=== PATIENT | female | born 1935 | race Caucasian/White ===

== ENCOUNTER 2016-05-25 09:16 | Day surgery (SDC) | payer OTHER, MEDICARE ==
[2016-05-24 08:55] VITALS: BMI 22.1
--- NOTE | 2016-05-25 08:37 | HP ---
History & Physical Update - History History: No Change - Physical Physical: No Change - Assessment Assessment: No Change - Plan Plan: No Change
[2016-05-25] MEDS ORDERED: BUPIVACAINE HCL/PF 0.5% (5MG/ML) 10 ML VIAL ONE (10:46)
[2016-05-25] MEDS ORDERED: PROPOFOL 20 ML ONE (12:09)
[2016-05-25] MEDS ORDERED: MIDAZOLAM HCL 2 MG/2 ML SINGLE DOSE VIAL ONE (12:09)
[2016-05-25] MEDS ORDERED: ceFAZolin SODIUM 1 GM VIAL IVPB ONE (13:13)
[2016-05-25] MEDS ORDERED: DESFLURANE GAS 240 ML BOTTLE IH ONE (13:14)
[2016-05-25] MEDS ORDERED: BUPIVACAINE HCL/PF 0.5% (5MG/ML) 10 ML VIAL IJ ONE ×2 (13:48)
[2016-05-25] MEDS ORDERED: ONDANSETRON 4 MG/2 ML VIAL ONE (14:16)
[2016-05-25] MEDS ORDERED: ONDANSETRON 4 MG/2 ML VIAL IVPUSH PRN (14:27)
[2016-05-25] MEDS ORDERED: oxyCODONE HCL 5 MG TABLET PO PRN (14:27)
--- NOTE | 2016-05-25 14:29 | SURG ---
Surgery Crane Rigger Note Crane Rigger: Jaimie Villalobos PA-C Date of Service: 05/25/16 Diagnosis: Incarcerated right inguinal hernia Procedure: Repair of incarcerated right inguinal hernia with plug and mesh I was present for the entirety of the operative procedure. For further detail, please refer to operative report. Visit type - Case Type Case Type: Scheduled Admission - Emergency Emergency Visit: No - New patient This patient is new to me today: Yes Date on this admission: 05/25/16 - Critical Care Critical Care patient: No
--- NOTE | 2016-05-25 14:32 | OP ---
Operative Note - Note: Operative Date: 05/25/16 Pre-Operative Diagnosis: Incarcerated right inguinal hernia. Operation: Repair of incarcerated right inguinal hernia with plug and mesh. Findings: Large defect on posterior wall of right inguinal canal. Large , wide sac. Post-Operative Diagnosis: Same as Pre-op Surgeon: Catherine Mathew Assembler Motor Vehicle: Jaimie Villalobos Anesthesia: General Specimens Removed: Hernial sac. Estimated Blood Loss (mls): 15 Operative Report Dictated: Yes
[2016-05-25] MEDS ORDERED: ACETAMINOPHEN INJECTION 100 ML IVPB ONE (14:34)
[2016-05-25 15:58] VITALS: TEMP 98
[2016-05-25] MEDS ORDERED: oxyCODONE HCL 5 MG TABLET ONE (16:01)
[2016-05-25] MEDS ORDERED: oxyCODONE HCL 5 MG TABLET PO ONE (16:04)
--- NOTE | 2016-05-25 17:00 | OP ---
DATE OF OPERATION: 05/25/2016 PREOPERATIVE DIAGNOSIS: Incarcerated right inguinal hernia. POSTOPERATIVE DIAGNOSIS: Incarcerated right inguinal hernia. OPERATIVE PROCEDURE: Repair of incarcerated right inguinal hernia with plug and mesh. SURGEON: Catherine Mathew MD BOAT CARPENTER MECHANIC: ANUP Whitt ANESTHESIA: General anesthesia. OPERATIVE DESCRIPTION: This 81-year-old woman was brought in for pain in her right groin with significant swelling. The patient was found to have incarcerated right inguinal hernia. Consent was obtained. The risks, benefits, and complications were discussed with the patient. The patient was given general anesthesia. The right groin was painted and draped. A time-out was called. The patient was a gram of Ancef. Incision was made in the right groin along the skin crease, which was deepened into the skin, subcutaneous tissue, Fox fascia, and external oblique aponeurosis. The inguinal canal was then opened. There was a lot of fat and a large sac with it going all the way down out to the external ring. This was carefully from the rest of the structures. The posterior wall of the inguinal canal was found to be friable and wide. The sac was carried all the way to the internal ring and then this was opened. The bowel was returned to the abdominal cavity. The neck of the sac was then suture-ligated with 3-0 Vicryl sutures and was from the posterior surface of the transversus abdominis muscle and fascia and the inferior portion and anterior portion of the abdominal wall and returned to the abdominal cavity. A large plug was inserted through the defect to push the peritoneum cephalad. This was anchored with 2-0 Prolene sutures passed through the internal oblique and transversus abdominis muscle and fascia and brought through the internal ring, caught the outer leaf of the mesh and was reinserted through the internal ring and brought out through the abdominal wall. Two sutures were obtained, one above and lateral to the defect and one above and medial to the defect. The plug was then inserted through the defect and placed and brought out through the anterior abdominal wall. Large mesh was then placed across the defect. This was anchored at the level of the pubic tubercle with 2-0 Prolene sutures. The inferior leaf of the mesh was placed over the shelving ledge of the inguinal ligament and anchored with the [employer] tracking device. The superior leaf of the mesh was incorporated with 2-0 Prolene suture holding the plug and brought through the mesh and the knot was fashioned. A few extra trackers were placed to attach the mesh over the internal oblique muscle. The repair was thus adequately performed. The wound was irrigated. Hemostasis was satisfactory. The external oblique aponeurosis was approximated with continuous 3-0 Vicryl sutures. Fox fascia was approximated with buried interrupted 3-0 Vicryl sutures and the subcutaneous fat was also approximated with buried interrupted 3-0 Vicryl sutures. The skin was approximated with 4-0 Monocryl sutures in a running subcuticular fashion. Dermabond was applied across the skin edges. Estimated blood loss was less than 10 mL. Sponge count and instrument count was correct. The patient was extubated and sent to the recovery room in satisfactory and stable condition. Cirilo REBOLLAR/[id number]
[2016-05-25 17:17] VITALS: BP 138/70; PULSE 75
--- NOTE | 2016-05-29 13:15 | PATH ---
Surgical Pathology Report Patient Name: KENJI OZUNA [facility]. Rec. #: [id number] /Age/Gender: 1935 (Age: 81) / F Account: [id number] Location: [facility] SURGICAL Taken: 05/28/2016 Received: 05/28/2016 Reported: 05/29/2016 Physicians: Beryl Mathew M.D. Specimen(s) Received HERNIA SAC Clinical History Incarcerated right inguinal hernia Final Diagnosis HERNIA SAC, RIGHT INCARCERATED INGUINAL HERNIA REPAIR: BENIGN FIBROMEMBRANOUS AND FIBROADIPOSE TISSUE WITH VASCULAR CONGESTION CONSISTENT WITH HERNIA SAC. Electronically Signed Owen Lu M.D. Gross Description Received in formalin labeled "hernia sac" is a 5.0 x 4.7 x 1.5 cm irregular portion of rodarte schumacher fibromembranous tissue with minimal attached fat. No masses or areas of hemorrhage or necrosis are identified. Servicenow Administrator sections are submitted in one cassette. /05/28/2016 saudi05/28/2016
== END 2016-05-25 17:05 | disposition home or self-care (01) ==
LOC: JASU-SURG 09:16
PROVIDERS: ATTEND Specialist
PROC: 0YU50JZ Supplement Right Inguinal Region with Synthetic Substitute, Open Approach (ICD-10-PCS; principal; 2016-05-25 11:30)
DX: K40.30 Unilateral inguinal hernia, with obstruction, without gangrene, not specified as recurrent (principal)
CPT/HCPCS: 88302-TC; 94760

== ENCOUNTER 2017-07-18 20:56 | Emergency (ER) | payer OTHER, MEDICARE ==
[2017-07-18 21:02] VITALS: TEMP 98.2; BMI 22.6
--- NOTE | 2017-07-18 21:04 | PDOC ---
Rapid Medical Evaluation Chief Complaint: Allergic Reaction Time Seen by Provider: 07/18/17 20:59 Medical Evaluation: Allergies Allergy/AdvReac Type Severity Reaction Status Date / Time aspirin Allergy Rash Verified 05/25/16 10:42 07/18/17 21:00 c/o oral swelling, + drowsy and slight nausea since 6pm. patient reports that she was gardening unsure if touched an allergen. she took benadryl and baby aspirin at 8 pm Patient alert oral swelling. no tongue swelling hives to body patient to ER further management of care.
[2017-07-18] MEDS ORDERED: diphenhydrAMINE HCL 25 MG CAPSULE (FP) PO ONE ×2 (21:57→22:04)
[2017-07-18] MEDS ORDERED: predniSONE 20 MG TABLET (UD) PO ONE (21:57)
[2017-07-18] MEDS ORDERED: predniSONE 20 MG TABLET (UD) ONE (22:04)
--- NOTE | 2017-07-18 22:40 | PDOC ---
Attending Attestation - Resident Resident Name: Alexander Shukla - ED Attending Attestation I have performed the following: I have examined & evaluated the patient, The case was reviewed & discussed with the resident, I agree w/resident's findings & plan, Exceptions are as noted - HPI HPI: 07/18/17 22:35 82-year-old female with history of hypertension presents with angioedema and urticaria. The patient was gardening today, approximately 2 PM to 4 PM. Stated that she had no ALLERGIES her symptoms at that time. At 6 PM, patient started noticing bilateral lip and to edema and diffuse urticaria along her upper extremities, chest and back. Also noted in her lower extremities. Patient reported which was gardening that she was wearing long jeans and short T-shirt. Denies any vascular lesions. No chest pain or shortness of breath. She stated that the symptoms started occur on its own. Patient does not take Ye inhibitors. She had taken a Benadryl prior to arrival in the symptoms are improved. Denies any diarrhea, nausea, vomiting. First-time episode. No new shampoos or soaps or detergents. - Physicial Exam PE: 07/18/17 22:37 GENERAL: Awake, alert, and fully oriented, in no acute distress. HEAD: No signs of trauma EYES: EOMI, sclera anicteric, conjunctiva clear ENT: Auricles normal inspection, hearing grossly normal, nares patent, oropharynx clear without exudates. B/l lip angioedema but clear oropharynx. NECK: Normal ROM, supple, no lymphadenopathy, JVD, or masses LUNGS: Breath sounds equal, clear to auscultation bilaterally. No wheezes, and no crackles HEART: Regular rate and rhythm, normal S1 and S2, no murmurs, rubs or gallops EXTREMITIES: Normal range of motion, no edema. No clubbing or cyanosis. No cords, erythema, or tenderness NEUROLOGICAL: Cranial nerves II through XII grossly intact. Normal speech, normal gait SKIN: Warm, Dry, normal turgor. Intermittent improving urticaria along flexors of biceps b/l, anterior chest and back. - Medical Decision Making 07/18/17 22:38 Vital Signs Temp Pulse Resp BP Pulse Ox 98.2 F 86 18 146/88 98 07/18/17 20:59 07/18/17 20:59 07/18/17 20:59 07/18/17 20:59 07/18/17 20:59 I suspect that this is likely angioedema and allergic reaction. Could this be from pollen or other exposure? This does not appear to be poison geronimo. Will give benadryl and prednisone and observe. If the symptoms resolve, and the patient has been stable for several hours, she can go home with follow up with an top lift trimmer. Pt will need a prescription for benadryl, prednisone and epipen. 07/18/17 23:56 Pt has been observed for 2 and half hours with significant improvement in symptoms. The patient and patient's son strongly wishes to go home and does not want to stay. I had explained to the patient strict return precautions given that we have not done a full 6 hour observation Pt and pt's son both agree and pt's son will watch patient at home. Will d/c patient home.
--- NOTE | 2017-07-18 23:20 | PDOC ---
History of Present Illness - General Chief Complaint: Allergic Reaction Stated Complaint: ALLERGIC REACTION Time Seen by Provider: 07/18/17 20:59 History Source: Patient, Family - History of Present Illness Initial Comments: 07/18/17 23:20 82F with pmh of HTN presents with lip angioedema and new-onset urticaria all over arms, chest and back. . The patient was gardening today at around 2pm, which is an activity she hadn't done in year. Ate an orange around 4 and started noticing increasingly intense symptoms. [place] was wearing gloves. No chest pain or shortness of breath. She stated that the symptoms started occur on its own. Patient does not take Ye inhibitors. She had taken a Benadryl prior to arrival in the symptoms are improved. Denies any diarrhea, nausea, vomiting. First-time episode. No new shampoos or soaps or detergents. No new foods. Past History - Past Medical History Allergies/Adverse Reactions: Allergies Allergy/AdvReac Type Severity Reaction Status Date / Time aspirin Allergy Rash Verified 07/18/17 21:02 Home Medications: Ambulatory Orders Amlodipine Besylate 10 mg PO DAILY 05/24/16 Simvastatin 5 mg PO HS 05/24/16 Diphenhydramine HCl [Benadryl -] 25 mg PO Q8H #21 capsule 07/18/17 Epinephrine [Epipen 2-Jp] 0.3 mg IJ ASDIR #1 kit 07/18/17 predniSONE [Deltasone -] 40 mg PO DAILY #4 tablet 07/18/17 COPD: No HTN: Yes Hypercholesterolemia: Yes Thyroid Disease: Yes (SL ELEVATED-NOT TREATED YET) - Suicide/Smoking/Psychosocial Hx Smoking Status: No Smoking History: Never smoked Number of Cigarettes Smoked Daily: 0 Hx Alcohol Use: No Drug/Substance Use Hx: No Substance Use Type: None Hx Substance Use Treatment: No Review of Systems - Review of Systems Able to Perform ROS?: Yes Is the patient limited Lithuanian proficient: No Constitutional: No: Symptoms Reported HEENTM: Yes: See HPI Respiratory: No: Symptoms reported Cardiac (ROS): No: Symptoms Reported ABD/GI: No: Symptoms Reported : No: Symptoms Reported Musculoskeletal: No: Symptoms Reported Integumentary: Yes: Dryness, Erythema, Pruritus, Rash Neurological: No: Symptoms reported *Physical Exam - Vital Signs Last Vital Signs Temp Pulse Resp BP Pulse Ox 98.2 F 86 18 146/88 98 07/18/17 20:59 07/18/17 20:59 07/18/17 20:59 07/18/17 20:59 07/18/17 20:59 - Physical Exam General Appearance: Yes: Nourished, Appropriately Dressed. No: Apparent Distress HEENT: positive: EOMI, IJEOMA, Other (angioedema of lips) Neck: negative: Tender Respiratory/Chest: positive: Lungs Clear, Normal Breath Sounds. negative: Chest Tender Cardiovascular: positive: Regular Rhythm, Regular Rate, S1, S2 Gastrointestinal/Abdominal: positive: Normal Bowel Sounds, Flat, Soft. negative : Tender Musculoskeletal: positive: Normal Inspection Integumentary: positive: Other (intensely pruritic erythematous patches with scaling over arms, chest and back.) Neurologic: positive: Fully Oriented, Alert, Normal Mood/Affect ED Treatment Course - Medications Given in the ED: ED Medications Discontinued Medications Generic Name Dose Route Start Last Admin Trade Name Freq PRN Reason Stop Dose Admin Diphenhydramine HCl 25 mg 07/18/17 21:57 07/18/17 22:00 Benadryl - PO 07/18/17 21:58 25 mg ONCE ONE Administration Prednisone 40 mg 07/18/17 21:57 07/18/17 22:00 Deltasone - PO 07/18/17 21:58 40 mg ONCE ONE Administration Medical Decision Making - Medical Decision Making 07/18/17 23:38 82 with pruritis scaly erythmatous patches consistent with new-onset urticaria and lip angioedema probably from exposure to irritant while gardening.. Will give Benadryl 25mg (2nd dose) and prednisone. Will observe until resolution of symptoms. 07/18/17 23:59 Will d/c with referral to Dr. David PARR/Admit/Observation/Transfer Diagnosis at time of Disposition: [id number] - Discharge Dispostion Disposition: HOME Condition at time of disposition: Improved Decision to Admit order: No - Prescriptions Prescriptions: Diphenhydramine HCl [Benadryl -] 25 mg PO Q8H #21 capsule Epinephrine [Epipen 2-Jp] 0.3 mg IJ ASDIR #1 kit predniSONE [Deltasone -] 40 mg PO DAILY #4 tablet - Referrals Referrals: Aristeo Hernandez MD [Primary Care Provider] - Alvino Hernandez MD [Staff Physician] - - Patient Instructions Printed Discharge Instructions: DI for Angioedema, DI for Hives Additional Instructions: Follow up with Dr. Hernandez within the next 4 days. supervisor endless track vehicle Epipen at pharmacy and carry at all times. Come back to the ER for any new, worsening or concerning symptom. - Post Discharge Activity
[2017-07-19 00:15] VITALS: BP 138/77; PULSE 84
== END 2017-07-19 00:15 | disposition home or self-care (01) ==
LOC: JER 20:56
DX: T78.3XXA Angioneurotic edema, initial encounter (principal)
CPT/HCPCS: 99282-25

== ENCOUNTER 2020-05-05 13:01 | Inpatient (IN) | payer OTHER, MEDICARE ==
[2020-05-05 15:24] LABS: POTASSIUM 3.9 mmol/L (3.5-5.1)
[2020-05-05 15:27] LABS: ALBUMIN 2.7 g/dl (3.4-5.0); BLOOD UREA NITROGEN 28.7 mg/dL (7-18)
[2020-05-05 15:29] LABS: BILIRUBIN,DIRECT 0.1 mg/dL (0.0-0.2)
[2020-05-05 15:30] LABS: CREATININE 1.2 mg/dL (0.55-1.3)
[2020-05-05 15:31] LABS: BILIRUBIN,TOTAL 0.4 mg/dL (0.2-1); TOT PROT 6.2 g/dl (6.4-8.2)
[2020-05-05] MEDS ORDERED: ACETAMINOPHEN 325 MG TABLET (FP) PO ONE (15:34)
[2020-05-05] MEDS ORDERED: DEXAMETHASONE SOD PHOSPHATE 4 MG/1 ML VIAL IVPUSH ONE (15:37)
[2020-05-05] MEDS ORDERED: DEXAMETHASONE SOD PHOSPHATE 10 MG/1 ML VIAL ONE (15:43)
[2020-05-05 17:15] LABS: INR 0.92 (0.83-1.09); PROTHROMBIN TIME (PATIENT) 11.3 SEC (9.7-13.0)
[2020-05-05] MEDS ORDERED: SIMVASTATIN 5 MG PO SCH (17:45)
[2020-05-05 18:56] VITALS: BMI 21.3
[2020-05-05] MEDS: HEPARIN NA (PORCINE) 5,000 UNITS/ML 1ML VIAL SQ SCH (22:00)
[2020-05-06] MEDS: HEPARIN NA (PORCINE) 5,000 UNITS/ML 1ML VIAL SQ SCH ×4 (06:12→21:07)
[2020-05-06 07:10] LABS: BASO % 0.4 % (0-2.0); HEMATOCRIT 40.4 % (32.4-45.2); HEMOGLOBIN 13.6 GM/dL (10.7-15.3); LYMPH % 9.5 % (8-40); MCH 28.4 pg (25.7-33.7); MCHC 33.7 g/dl (32.0-36.0); MEAN CELL VOLUME 84.5 fl (80-96); MEAN PLT VOLUME 8.4 fl (7.5-11.1); MONO % 6.8 % (3.8-10.2); NEUT % 83.3 % (42.8-82.8); PLATELET COUNT 287 K/MM3 (134-434); RBC 4.78 M/mm3 (3.60-5.2); RDW 13.6 % (11.6-15.6)
[2020-05-06 07:26] LABS: ALBUMIN 2.8 g/dl (3.4-5.0)
[2020-05-06 07:27] LABS: BLOOD UREA NITROGEN 28.6 mg/dL (7-18)
[2020-05-06 07:30] LABS: CREATININE 1.2 mg/dL (0.55-1.3); PHOSPHOROUS 4.1 mg/dL (2.5-4.9)
[2020-05-06 07:31] LABS: BILIRUBIN,TOTAL 0.6 mg/dL (0.2-1)
[2020-05-06] MEDS ORDERED: DEXAMETHASONE 4 MG TABLET (FP) PO SCH (10:00)
[2020-05-06] MEDS: DONEPEZIL HCL 10 MG TABLET (FP) PO SCH (10:11)
[2020-05-06] MEDS: LOSARTAN POTASSIUM 50 MG TABLET PO SCH (10:11)
[2020-05-06] MEDS ORDERED: REMDESIVIR 200 MG in SODIUM CHLORIDE 210 ML IVPB ONE (12:30)
[2020-05-06] MEDS: amLODIPine BESYLATE 10 MG TABLET (FP) PO SCH (15:17)
[2020-05-07] MEDS: HEPARIN NA (PORCINE) 5,000 UNITS/ML 1ML VIAL SQ SCH ×3 (05:27→21:50)
[2020-05-07 08:42] LABS: HEMATOCRIT 40.7 % (32.4-45.2); HEMOGLOBIN 13.9 GM/dL (10.7-15.3); MCH 28.4 pg (25.7-33.7); MCHC 34.2 g/dl (32.0-36.0); MEAN PLT VOLUME 8.4 fl (7.5-11.1); PLATELET COUNT 449 K/MM3 (134-434); RDW 13.8 % (11.6-15.6); WHITE BLOOD COUNT 8.3 K/mm3 (4.0-10.0)
[2020-05-07 09:17] LABS: POTASSIUM 3.4 mmol/L (3.5-5.1)
[2020-05-07 09:34] LABS: BLOOD UREA NITROGEN 35.8 mg/dL (7-18)
[2020-05-07 09:35] LABS: BILIRUBIN,TOTAL 0.7 mg/dL (0.2-1); TOT PROT 7.2 g/dl (6.4-8.2)
[2020-05-07 09:37] LABS: CREATININE 1.1 mg/dL (0.55-1.3)
[2020-05-07 09:42] LABS: CALCIUM 10.5 mg/dL (8.5-10.1)
[2020-05-07] MEDS ORDERED: PT OWN MED DRAWER 7, Y5N ONE (09:59)
[2020-05-07] MEDS: MAGNESIUM OXIDE 400 MG TABLET (FP) PO ONE ×2 (10:10→10:31)
[2020-05-07] MEDS: LOSARTAN POTASSIUM 50 MG TABLET PO SCH ×2 (10:10→10:31)
[2020-05-07] MEDS: DONEPEZIL HCL 10 MG TABLET (FP) PO SCH ×2 (10:10→10:30)
[2020-05-07] MEDS: amLODIPine BESYLATE 10 MG TABLET (FP) PO SCH ×2 (10:10→10:31)
[2020-05-07] MEDS: DEXAMETHASONE SOD PHOSPHATE 4 MG/1 ML VIAL IVPUSH SCH ×2 (10:11→10:31)
[2020-05-07] MEDS: ALBUTEROL SO4 HFA INHALER IH PRN (10:11)
[2020-05-07] MEDS: MELATONIN 5 MG TABLETS PO ONE ×2 (10:11→10:31)
[2020-05-07] MEDS: REMDESIVIR 100 MG in SODIUM CHLORIDE 230 ML IVPB SCH ×2 (12:50→21:55)
[2020-05-07] MEDS: BUDESONIDE/FORMETEROL FUMARATE 80/4.5 mcg INHALER IH SCH ×2 (12:50→21:50)
[2020-05-07] MEDS ORDERED: LORazepam 2 MG/ML SDV VIAL IM ONE (15:15)
[2020-05-08] MEDS: HEPARIN NA (PORCINE) 5,000 UNITS/ML 1ML VIAL SQ SCH ×2 (06:01→13:09)
[2020-05-08] MEDS: BUDESONIDE/FORMETEROL FUMARATE 80/4.5 mcg INHALER IH SCH ×2 (10:09→21:48)
[2020-05-08] MEDS: DEXAMETHASONE SOD PHOSPHATE 4 MG/1 ML VIAL IVPUSH SCH (10:15)
[2020-05-08] MEDS: amLODIPine BESYLATE 10 MG TABLET (FP) PO SCH (10:15)
[2020-05-08] MEDS: DONEPEZIL HCL 10 MG TABLET (FP) PO SCH (10:15)
[2020-05-08] MEDS: LOSARTAN POTASSIUM 50 MG TABLET PO SCH (10:15)
[2020-05-08] MEDS ORDERED: PT OWN MED DRAWER 7, Y5N ONE (13:05)
[2020-05-08] MEDS: REMDESIVIR 100 MG in SODIUM CHLORIDE 230 ML IVPB SCH (13:09)
[2020-05-08] MEDS: POTASSIUM CHLORIDE TABS 20 MEQ TABLET.ER (FP) PO SCH (21:48)
[2020-05-08] MEDS: ENOXAPARIN NA (PORCINE) 40 MG/0.4 ML DISP.SYRIN SQ SCH (21:48)
[2020-05-09 07:16] LABS: EPI CELLS 23 /uL (0-25.1); HYALINE CASTS 8 /uL (0-3.1); URINE APPEARANCE CLEAR; URINE BACTERIA 3 /uL (0-1359); URINE BILIRUBIN NEGATIVE (NEGATIVE); URINE COLOR YELLOW; URINE GLUCOSE (UA) NEGATIVE (NEGATIVE); URINE KETONE TRACE (NEGATIVE); URINE LEUK ESTERASE NEGATIVE (NEGATIVE); URINE NITRITE NEGATIVE (NEGATIVE); URINE PROTEIN 1+ (NEGATIVE); URINE RBC 5 /uL (0-23.9); URINE UROBILINOGEN 0.2 mg/dL (0.2-1.0); URINE WBC 7 /uL (0-25.8)
[2020-05-09 09:06] LABS: EOS % 0.1 % (0-4.5); HEMATOCRIT 44.4 % (32.4-45.2); HEMOGLOBIN 15.1 GM/dL (10.7-15.3); LYMPH % 9.8 % (8-40); MCH 28.6 pg (25.7-33.7); MEAN PLT VOLUME 7.5 fl (7.5-11.1); MONO % 11.3 % (3.8-10.2); NEUT % 78.8 % (42.8-82.8); PLATELET COUNT 465 K/MM3 (134-434); RBC 5.29 M/mm3 (3.60-5.2); RDW 13.8 % (11.6-15.6); WHITE BLOOD COUNT 5.8 K/mm3 (4.0-10.0)
[2020-05-09 09:34] LABS: CALCIUM 10.9 mg/dL (8.5-10.1)
[2020-05-09 09:35] LABS: BLOOD UREA NITROGEN 43.1 mg/dL (7-18); MAGNESIUM 2.5 mg/dL (1.8-2.4)
[2020-05-09 09:37] LABS: CREATININE 1.1 mg/dL (0.55-1.3)
[2020-05-09 09:38] LABS: PHOSPHOROUS 2.6 mg/dL (2.5-4.9)
[2020-05-09 09:39] LABS: BILIRUBIN,TOTAL 0.7 mg/dL (0.2-1); TOT PROT 7.4 g/dl (6.4-8.2)
[2020-05-09] MEDS: amLODIPine BESYLATE 10 MG TABLET (FP) PO SCH (10:33)
[2020-05-09] MEDS: ENOXAPARIN NA (PORCINE) 40 MG/0.4 ML DISP.SYRIN SQ SCH ×2 (10:33→23:36)
[2020-05-09] MEDS: POTASSIUM CHLORIDE TABS 20 MEQ TABLET.ER (FP) PO SCH ×2 (10:33→23:35)
[2020-05-09] MEDS: BUDESONIDE/FORMETEROL FUMARATE 80/4.5 mcg INHALER IH SCH ×2 (10:34→23:36)
[2020-05-09] MEDS: DEXAMETHASONE SOD PHOSPHATE 4 MG/1 ML VIAL IVPUSH SCH (10:35)
[2020-05-09] MEDS: DONEPEZIL HCL 10 MG TABLET (FP) PO SCH (10:35)
[2020-05-09] MEDS: LOSARTAN POTASSIUM 50 MG TABLET PO SCH (10:35)
[2020-05-09] MEDS: REMDESIVIR 100 MG in SODIUM CHLORIDE 230 ML IVPB SCH (11:39)
[2020-05-09] MEDS: ESCITALOPRAM OXALATE 10 MG TABLET PO SCH (18:04)
[2020-05-09] MEDS: ASCORBIC ACID 250 MG TABLET (FP) PO SCH (23:35)
[2020-05-10] MEDS ORDERED: PATIENT'S OWN MEDICATION (NON-FORMULARY) (Pravastatin Sodium [Pravastatin Sodium] 20 MG Ta PO SCH (10:00)
[2020-05-10] MEDS ORDERED: PT OWN MED DRAWER 7, Y5N ONE ×3 (10:06→20:32)
[2020-05-10] MEDS: LOSARTAN POTASSIUM 50 MG TABLET PO SCH (10:07)
[2020-05-10] MEDS: DEXAMETHASONE SOD PHOSPHATE 4 MG/1 ML VIAL IVPUSH SCH (10:07)
[2020-05-10] MEDS: ZINC SULFATE 220 MG CAPSULE (FP) PO SCH (10:07)
[2020-05-10] MEDS: ENOXAPARIN NA (PORCINE) 40 MG/0.4 ML DISP.SYRIN SQ SCH ×2 (10:07→22:06)
[2020-05-10] MEDS: DONEPEZIL HCL 10 MG TABLET (FP) PO SCH (10:07)
[2020-05-10] MEDS: CHOLECALCIFEROL (VIT D3) 1,000 UNIT (25 MCG) TABLET PO SCH (10:07)
[2020-05-10] MEDS: BUDESONIDE/FORMETEROL FUMARATE 80/4.5 mcg INHALER IH SCH ×2 (10:08→22:09)
[2020-05-10] MEDS: ESCITALOPRAM OXALATE 10 MG TABLET PO SCH (10:08)
[2020-05-10] MEDS: amLODIPine BESYLATE 10 MG TABLET (FP) PO SCH (10:08)
[2020-05-10] MEDS: REMDESIVIR 100 MG in SODIUM CHLORIDE 230 ML IVPB SCH (11:57)
[2020-05-10] MEDS: ASCORBIC ACID 250 MG TABLET (FP) PO SCH ×2 (11:57→22:06)
[2020-05-10] MEDS ORDERED: SODIUM CHLORIDE 0.45% 1,000 ML IV SCH (17:00)
[2020-05-11 07:30] LABS: HEMATOCRIT 39.7 % (32.4-45.2); HEMOGLOBIN 13.3 GM/dL (10.7-15.3); MCH 28.4 pg (25.7-33.7); MCHC 33.6 g/dl (32.0-36.0); MEAN CELL VOLUME 84.5 fl (80-96); MEAN PLT VOLUME 7.7 fl (7.5-11.1); PLATELET COUNT 516 K/MM3 (134-434); RDW 13.6 % (11.6-15.6); WHITE BLOOD COUNT 10.4 K/mm3 (4.0-10.0)
[2020-05-11 08:02] LABS: POTASSIUM 3.7 mmol/L (3.5-5.1)
[2020-05-11 08:50] LABS: ALBUMIN 3.1 g/dl (3.4-5.0); BLOOD UREA NITROGEN 48.1 mg/dL (7-18); CALCIUM 10.4 mg/dL (8.5-10.1); MAGNESIUM 2.4 mg/dL (1.8-2.4)
[2020-05-11 08:53] LABS: CREATININE 1.2 mg/dL (0.55-1.3); PHOSPHOROUS 2.4 mg/dL (2.5-4.9)
[2020-05-11 08:55] LABS: BILIRUBIN,TOTAL 0.8 mg/dL (0.2-1); TOT PROT 6.7 g/dl (6.4-8.2)
[2020-05-11] MEDS ORDERED: PT OWN MED DRAWER 7, Y5N ONE ×4 (10:29→21:22)
[2020-05-11] MEDS: ESCITALOPRAM OXALATE 10 MG TABLET PO SCH (10:38)
[2020-05-11] MEDS: LOSARTAN POTASSIUM 50 MG TABLET PO SCH (10:38)
[2020-05-11] MEDS: DONEPEZIL HCL 10 MG TABLET (FP) PO SCH (10:38)
[2020-05-11] MEDS: amLODIPine BESYLATE 10 MG TABLET (FP) PO SCH (10:40)
[2020-05-11] MEDS: AMINO ACIDS/PROTEIN HYDROLYS 30 ML LIQUID.PKT PO SCH ×2 (10:40→10:50)
[2020-05-11] MEDS: CHOLECALCIFEROL (VIT D3) 1,000 UNIT (25 MCG) TABLET PO SCH (10:40)
[2020-05-11] MEDS: ASCORBIC ACID 250 MG TABLET (FP) PO SCH ×3 (10:40→21:52)
[2020-05-11] MEDS: ZINC SULFATE 220 MG CAPSULE (FP) PO SCH (10:40)
[2020-05-11] MEDS: DEXAMETHASONE SOD PHOSPHATE 4 MG/1 ML VIAL IVPUSH SCH (10:41)
[2020-05-11] MEDS: BUDESONIDE/FORMETEROL FUMARATE 80/4.5 mcg INHALER IH SCH ×3 (10:41→21:52)
[2020-05-11] MEDS: ENOXAPARIN NA (PORCINE) 40 MG/0.4 ML DISP.SYRIN SQ SCH ×2 (15:43→21:46)
[2020-05-11] MEDS: SODIUM CHLORIDE 0.45% 1,000 ML IV SCH ×2 (15:47→17:41)
[2020-05-12] MEDS: ALBUTEROL SO4 HFA INHALER IH PRN (09:00)
[2020-05-12] MEDS: AMINO ACIDS/PROTEIN HYDROLYS 30 ML LIQUID.PKT PO SCH (11:55)
[2020-05-12] MEDS: MULTIVITAMINS (DAILY MVI) TABLET (FP) PO SCH (11:55)
[2020-05-12] MEDS: amLODIPine BESYLATE 10 MG TABLET (FP) PO SCH (11:55)
[2020-05-12] MEDS: CHOLECALCIFEROL (VIT D3) 1,000 UNIT (25 MCG) TABLET PO SCH (11:55)
[2020-05-12] MEDS: DONEPEZIL HCL 10 MG TABLET (FP) PO SCH (11:56)
[2020-05-12] MEDS: ZINC SULFATE 220 MG CAPSULE (FP) PO SCH (11:56)
[2020-05-12] MEDS: DEXAMETHASONE 4 MG TABLET (FP) PO SCH (11:56)
[2020-05-12] MEDS: ESCITALOPRAM OXALATE 10 MG TABLET PO SCH (11:56)
[2020-05-12] MEDS: ASCORBIC ACID 250 MG TABLET (FP) PO SCH ×2 (11:57→21:03)
[2020-05-12] MEDS: LOSARTAN POTASSIUM 50 MG TABLET PO SCH (11:57)
[2020-05-12] MEDS: BUDESONIDE/FORMETEROL FUMARATE 80/4.5 mcg INHALER IH SCH ×2 (11:58→21:03)
[2020-05-12] MEDS: ENOXAPARIN NA (PORCINE) 40 MG/0.4 ML DISP.SYRIN SQ SCH ×2 (11:58→21:02)
[2020-05-12] MEDS: SODIUM CHLORIDE 0.45% 1,000 ML IV SCH ×2 (11:59→15:25)
[2020-05-12 12:23] LABS: HEMATOCRIT 41.8 % (32.4-45.2); HEMOGLOBIN 13.8 GM/dL (10.7-15.3); MCH 27.9 pg (25.7-33.7); MCHC 33.1 g/dl (32.0-36.0); MEAN CELL VOLUME 84.3 fl (80-96); MEAN PLT VOLUME 7.8 fl (7.5-11.1); PLATELET COUNT 465 K/MM3 (134-434); RBC 4.96 M/mm3 (3.60-5.2); RDW 13.8 % (11.6-15.6); WHITE BLOOD COUNT 7.1 K/mm3 (4.0-10.0)
[2020-05-12 12:46] LABS: POTASSIUM 3.9 mmol/L (3.5-5.1)
[2020-05-12 12:49] LABS: ALBUMIN 2.9 g/dl (3.4-5.0); BLOOD UREA NITROGEN 41.8 mg/dL (7-18); MAGNESIUM 2.2 mg/dL (1.8-2.4)
[2020-05-12 12:51] LABS: CALCIUM 9.9 mg/dL (8.5-10.1)
[2020-05-12 12:53] LABS: BILIRUBIN,TOTAL 1.1 mg/dL (0.2-1); CREATININE 0.9 mg/dL (0.55-1.3); PHOSPHOROUS 2.4 mg/dL (2.5-4.9)
[2020-05-12 12:54] LABS: TOT PROT 6.2 g/dl (6.4-8.2)
[2020-05-12] MEDS ORDERED: POTASSIUM PHOSPHATE 15 MM in SODIUM CHLORIDE 250 ML IVPB ONE (15:00)
[2020-05-12] MEDS ORDERED: PT OWN MED DRAWER 7, Y5N ONE (19:49)
[2020-05-13] MEDS ORDERED: SODIUM CHLORIDE 0.45% 1,000 ML IV SCH (07:49)
[2020-05-13] MEDS: AMINO ACIDS/PROTEIN HYDROLYS 30 ML LIQUID.PKT PO SCH (11:00)
[2020-05-13] MEDS: ENOXAPARIN NA (PORCINE) 40 MG/0.4 ML DISP.SYRIN SQ SCH ×2 (11:00→23:21)
[2020-05-13] MEDS: DEXAMETHASONE 4 MG TABLET (FP) PO SCH (11:00)
[2020-05-13] MEDS: amLODIPine BESYLATE 10 MG TABLET (FP) PO SCH (11:00)
[2020-05-13] MEDS: ESCITALOPRAM OXALATE 10 MG TABLET PO SCH (11:00)
[2020-05-13] MEDS: LOSARTAN POTASSIUM 50 MG TABLET PO SCH (11:01)
[2020-05-13] MEDS: DONEPEZIL HCL 10 MG TABLET (FP) PO SCH (11:01)
[2020-05-13] MEDS: ZINC SULFATE 220 MG CAPSULE (FP) PO SCH (11:01)
[2020-05-13] MEDS: MULTIVITAMINS (DAILY MVI) TABLET (FP) PO SCH (11:01)
[2020-05-13] MEDS: CHOLECALCIFEROL (VIT D3) 1,000 UNIT (25 MCG) TABLET PO SCH (11:01)
[2020-05-13] MEDS: BUDESONIDE/FORMETEROL FUMARATE 80/4.5 mcg INHALER IH SCH ×2 (11:01→23:21)
[2020-05-13] MEDS: ASCORBIC ACID 250 MG TABLET (FP) PO SCH ×2 (11:02→23:48)
[2020-05-13 12:20] LABS: HEMOGLOBIN 13.9 GM/dL (10.7-15.3); MCH 28.3 pg (25.7-33.7); MCHC 33.9 g/dl (32.0-36.0); MEAN CELL VOLUME 83.3 fl (80-96); MEAN PLT VOLUME 7.6 fl (7.5-11.1); PLATELET COUNT 440 K/MM3 (134-434); RBC 4.91 M/mm3 (3.60-5.2); RDW 13.5 % (11.6-15.6); WHITE BLOOD COUNT 7.4 K/mm3 (4.0-10.0)
[2020-05-13 12:47] LABS: POTASSIUM 3.5 mmol/L (3.5-5.1)
[2020-05-13 12:49] LABS: BLOOD UREA NITROGEN 29.2 mg/dL (7-18); CALCIUM 9.1 mg/dL (8.5-10.1); MAGNESIUM 1.9 mg/dL (1.8-2.4)
[2020-05-13 12:52] LABS: CREATININE 0.8 mg/dL (0.55-1.3)
[2020-05-13 12:53] LABS: PHOSPHOROUS 2.3 mg/dL (2.5-4.9)
[2020-05-13] MEDS ORDERED: SODIUM CHLORIDE 1,000 ML IV SCH (13:00)
[2020-05-13 17:17] LABS: POTASSIUM 3.7 mmol/L (3.5-5.1)
[2020-05-13 17:19] LABS: CALCIUM 9.3 mg/dL (8.5-10.1)
[2020-05-13 17:20] LABS: BLOOD UREA NITROGEN 29.9 mg/dL (7-18)
[2020-05-13 17:24] LABS: CREATININE 0.8 mg/dL (0.55-1.3)
[2020-05-14] MEDS: AMINO ACIDS/PROTEIN HYDROLYS 30 ML LIQUID.PKT PO SCH (09:17)
[2020-05-14] MEDS ORDERED: PT OWN MED DRAWER 7, Y5N ONE (10:01)
[2020-05-14] MEDS: DEXAMETHASONE 4 MG TABLET (FP) PO SCH (10:04)
[2020-05-14] MEDS: ZINC SULFATE 220 MG CAPSULE (FP) PO SCH (10:04)
[2020-05-14] MEDS: DONEPEZIL HCL 10 MG TABLET (FP) PO SCH (10:04)
[2020-05-14] MEDS: ENOXAPARIN NA (PORCINE) 40 MG/0.4 ML DISP.SYRIN SQ SCH (10:04)
[2020-05-14] MEDS: CHOLECALCIFEROL (VIT D3) 1,000 UNIT (25 MCG) TABLET PO SCH (10:05)
[2020-05-14] MEDS: ESCITALOPRAM OXALATE 10 MG TABLET PO SCH (10:05)
[2020-05-14] MEDS: MULTIVITAMINS (DAILY MVI) TABLET (FP) PO SCH (10:05)
[2020-05-14] MEDS: amLODIPine BESYLATE 10 MG TABLET (FP) PO SCH (10:05)
[2020-05-14] MEDS: ASCORBIC ACID 250 MG TABLET (FP) PO SCH (10:06)
[2020-05-14] MEDS: LOSARTAN POTASSIUM 50 MG TABLET PO SCH (10:06)
[2020-05-14] MEDS: BUDESONIDE/FORMETEROL FUMARATE 80/4.5 mcg INHALER IH SCH (10:06)
[2020-05-14 13:12] LABS: CALCIUM 10.3 mg/dL (8.5-10.1); POTASSIUM 3.6 mmol/L (3.5-5.1)
[2020-05-14 13:13] LABS: BLOOD UREA NITROGEN 38.5 mg/dL (7-18)
[2020-05-14 13:16] LABS: CREATININE 0.8 mg/dL (0.55-1.3)
[2020-05-14 16:08] VITALS: BP 112/73; PULSE 89; TEMP 97.8
== END 2020-05-14 20:30 | disposition home health service (06) | DRG 177 ==
LOC: JER 13:01 → JERBED 16:16 → J7W 18:09 → J8W 05-06 22:50
PROVIDERS: ADMIT Student in an Organized Health Care Education/Training Program; ATTEND Internal Medicine
PROC: XW033E5 Introduction of Remdesivir Anti-infective into Peripheral Vein, Percutaneous Approach, New Technology Group 5 (ICD-10-PCS; principal; 2020-05-06)
PROC: XW13325 Transfusion of Convalescent Plasma (Nonautologous) into Peripheral Vein, Percutaneous Approach, New Technology Group 5 (ICD-10-PCS; 2020-05-09)
DX: U07.1 COVID-19 (principal); J12.82 Pneumonia due to coronavirus disease 2019; G93.41 Metabolic encephalopathy; J96.01 Acute respiratory failure with hypoxia; F05 Delirium due to known physiological condition; F03.91 Unspecified dementia, unspecified severity, with behavioral disturbance; I10 Essential (primary) hypertension; E78.5 Hyperlipidemia, unspecified; R50.9 Fever, unspecified; Z20.822 Contact with and (suspected) exposure to COVID-19; E86.0 Dehydration
CPT/HCPCS: 36415; 36430; 71045-TC-FY; 80048; 80053; 81003; 82248; 82550; 82728; 83605; 83615; 83735; 84100; 84484; 85025; 85027; 85379; 85610; 85730; 86140; 86769; 86850; 86900; 86901; 87040; 87086; 87804; 93005; 93010; 97116-GP; 97161-GP; 99285-25; C9399; C9803; J1644; P9017; U0003; U0005

== ENCOUNTER 2021-06-30 08:54 | Inpatient (IN) | payer OTHER, MEDICARE ==
[2021-06-30 10:33] LABS: BASO % 0.7 % (0-2.0); HEMATOCRIT 38.2 % (32.4-45.2); HEMOGLOBIN 13.1 GM/dL (10.7-15.3); LYMPH % 17.8 % (8-40); MCH 28.5 pg (25.7-33.7); MCHC 34.3 g/dl (32.0-36.0); MEAN PLT VOLUME 7.8 fl (7.5-11.1); MONO % 5.9 % (3.8-10.2); NEUT % 74.6 % (42.8-82.8); PLATELET COUNT 287 10^3/uL (134-434); RDW 13.3 % (11.6-15.6); WHITE BLOOD COUNT 5.8 K/mm3 (4.0-10.0)
[2021-06-30 10:35] LABS: EPI CELLS 6 /uL (0-25.1); HYALINE CASTS 0 /uL (0-3.1); URINE APPEARANCE CLEAR; URINE BACTERIA 4 /uL (0-1359); URINE BILIRUBIN NEGATIVE (NEGATIVE); URINE COLOR YELLOW; URINE GLUCOSE (UA) NEGATIVE (NEGATIVE); URINE KETONE NEGATIVE (NEGATIVE); URINE LEUK ESTERASE NEGATIVE (NEGATIVE); URINE NITRITE NEGATIVE (NEGATIVE); URINE PROTEIN NEGATIVE (NEGATIVE); URINE RBC 56 /uL (0-23.9); URINE UROBILINOGEN 0.2 mg/dL (0.2-1.0); URINE WBC 5 /uL (0-25.8)
[2021-06-30 10:40] LABS: INR 0.97 (0.83-1.09); PROTHROMBIN TIME (PATIENT) 11.1 SEC (9.7-13.0)
[2021-06-30 10:43] LABS: ACTIVATED PTT 31.4 SECONDS (25.2-36.5)
[2021-06-30 10:57] LABS: BLOOD UREA NITROGEN 35.1 mg/dL (7-18)
[2021-06-30 10:58] LABS: ALBUMIN 3.7 g/dl (3.4-5.0); CALCIUM 9.6 mg/dL (8.5-10.1)
[2021-06-30 11:01] LABS: CREATININE 1.4 mg/dL (0.55-1.3)
[2021-06-30 11:02] LABS: BILIRUBIN,TOTAL 0.9 mg/dL (0.2-1)
[2021-06-30 11:03] LABS: TOT PROT 6.8 g/dl (6.4-8.2)
[2021-06-30] MEDS ORDERED: CLOPIDOGREL BISULFATE 75 MG TABLET (FP) ONE (17:53)
[2021-06-30] MEDS: CLOPIDOGREL BISULFATE 75 MG TABLET (FP) PO SCH (17:55)
[2021-06-30 20:29] VITALS: BMI 24.2
[2021-06-30] MEDS ORDERED: PNEUMOC 20-VAL CONJ-DIP CRM/PF 0.5 ML SYRINGE IM ONE (20:29)
[2021-06-30] MEDS ORDERED: LORazepam 2 MG/ML SDV VIAL IVPUSH ONE (20:41)
[2021-06-30] MEDS: ATORVASTATIN CA 40 MG TABLET (FP) PO SCH (21:04)
[2021-06-30] MEDS ORDERED: ATORVASTATIN CA 10 MG TABLET (FP) PO SCH (22:00)
[2021-07-01] MEDS: CLOPIDOGREL BISULFATE 75 MG TABLET (FP) PO SCH (09:27)
[2021-07-01] MEDS: DONEPEZIL HCL 10 MG TABLET (FP) PO SCH (09:27)
[2021-07-01] MEDS: ATORVASTATIN CA 40 MG TABLET (FP) PO SCH (23:35)
[2021-07-02 06:54] LABS: BASO % 0.6 % (0-2.0); EOS % 1.5 % (0-4.5); HEMATOCRIT 43.1 % (32.4-45.2); HEMOGLOBIN 14.3 GM/dL (10.7-15.3); LYMPH % 19.1 % (8-40); MCH 27.5 pg (25.7-33.7); MCHC 33.2 g/dl (32.0-36.0); MEAN CELL VOLUME 82.8 fl (80-96); MONO % 6.7 % (3.8-10.2); NEUT % 72.1 % (42.8-82.8); PLATELET COUNT 288 10^3/uL (134-434); RDW 13.3 % (11.6-15.6); WHITE BLOOD COUNT 6.6 K/mm3 (4.0-10.0)
[2021-07-02 07:19] LABS: ALBUMIN 3.7 g/dl (3.4-5.0); BLOOD UREA NITROGEN 37.5 mg/dL (7-18); MAGNESIUM 2.2 mg/dL (1.8-2.4)
[2021-07-02 07:22] LABS: BILIRUBIN,TOTAL 0.7 mg/dL (0.2-1); CREATININE 1.4 mg/dL (0.55-1.3); PHOSPHOROUS 3.1 mg/dL (2.5-4.9)
[2021-07-02] MEDS: DONEPEZIL HCL 10 MG TABLET (FP) PO SCH (09:11)
[2021-07-02] MEDS: CLOPIDOGREL BISULFATE 75 MG TABLET (FP) PO SCH (09:11)
[2021-07-02] MEDS ORDERED: ENOXAPARIN NA (PORCINE) 40 MG/0.4 ML DISP.SYRIN SQ SCH (10:00)
[2021-07-02] MEDS: ENOXAPARIN NA (PORCINE) 40 MG/0.4 ML DISP.SYRIN SQ SCH ×2 (10:15→10:21)
[2021-07-02] MEDS: ENOXAPARIN NA (PORCINE) 30 MG/0.3 ML DISP.SYRIN SQ SCH (10:40)
[2021-07-02] MEDS ORDERED: LORazepam 2 MG/ML SDV VIAL IVPUSH ONE (21:26)
[2021-07-02] MEDS: ATORVASTATIN CA 40 MG TABLET (FP) PO SCH (21:37)
[2021-07-03] MEDS ORDERED: PATIENT'S OWN MEDICATION (NON-FORMULARY) (Olmesartan Medoxomil [Olmesartan Medoxomil] 20 M PO SCH (06:09)
[2021-07-03] MEDS: LOSARTAN POTASSIUM 50 MG TABLET PO SCH (06:54)
[2021-07-03 07:20] LABS: BASO % 1.5 % (0-2.0); EOS % 2.8 % (0-4.5); HEMOGLOBIN 13.9 GM/dL (10.7-15.3); MCHC 33.9 g/dl (32.0-36.0); MEAN CELL VOLUME 82.6 fl (80-96); MONO % 8.6 % (3.8-10.2); NEUT % 66.1 % (42.8-82.8); PLATELET COUNT 274 10^3/uL (134-434); RBC 4.96 M/mm3 (3.60-5.2); RDW 13.1 % (11.6-15.6); WHITE BLOOD COUNT 5.7 K/mm3 (4.0-10.0)
[2021-07-03 07:26] LABS: ALBUMIN 3.6 g/dl (3.4-5.0); BLOOD UREA NITROGEN 32.6 mg/dL (7-18); CALCIUM 9.9 mg/dL (8.5-10.1); MAGNESIUM 2.1 mg/dL (1.8-2.4)
[2021-07-03 07:31] LABS: BILIRUBIN,TOTAL 0.9 mg/dL (0.2-1); TOT PROT 6.8 g/dl (6.4-8.2)
[2021-07-03 08:03] LABS: CREATININE 1.2 mg/dL (0.55-1.3)
[2021-07-03] MEDS: ENOXAPARIN NA (PORCINE) 30 MG/0.3 ML DISP.SYRIN SQ SCH (10:42)
[2021-07-03] MEDS: DONEPEZIL HCL 10 MG TABLET (FP) PO SCH (10:43)
[2021-07-03] MEDS: CLOPIDOGREL BISULFATE 75 MG TABLET (FP) PO SCH (10:43)
[2021-07-03] MEDS ORDERED: POTASSIUM CHLORIDE TABS 20 MEQ TABLET.ER (FP) PO ONE (16:52)
[2021-07-03] MEDS: ATORVASTATIN CA 40 MG TABLET (FP) PO SCH (21:30)
[2021-07-04 08:08] LABS: CALCIUM 10.5 mg/dL (8.5-10.1)
[2021-07-04 08:09] LABS: BLOOD UREA NITROGEN 32.9 mg/dL (7-18); MAGNESIUM 2.3 mg/dL (1.8-2.4)
[2021-07-04 08:12] LABS: CREATININE 1.1 mg/dL (0.55-1.3)
[2021-07-04] MEDS: CLOPIDOGREL BISULFATE 75 MG TABLET (FP) PO SCH (10:02)
[2021-07-04] MEDS: LOSARTAN POTASSIUM 50 MG TABLET PO SCH (10:02)
[2021-07-04] MEDS: ENOXAPARIN NA (PORCINE) 30 MG/0.3 ML DISP.SYRIN SQ SCH (10:02)
[2021-07-04] MEDS: DONEPEZIL HCL 10 MG TABLET (FP) PO SCH (10:03)
[2021-07-04] MEDS ORDERED: PNEUMOC 20-VAL CONJ-DIP CRM/PF 0.5 ML SYRINGE IM ONE (12:15)
[2021-07-04 17:04] VITALS: BP 136/93; PULSE 85; TEMP 98.3
== END 2021-07-04 12:30 | disposition home or self-care (01) | DRG 65 ==
LOC: JER 08:54 → UNDOADMOB 10:11 → INTOOBSV 10:11 → JERBED 10:11 → J2W 20:06 → OBSVTOIN 07-02 07:30
PROVIDERS: ADMIT Internal Medicine
DX: I63.81 Other cerebral infarction due to occlusion or stenosis of small artery (principal); Q21.1 Atrial septal defect; I10 Essential (primary) hypertension; F03.90 Unspecified dementia, unspecified severity, without behavioral disturbance, psychotic disturbance, mood disturbance, and anxiety; E78.5 Hyperlipidemia, unspecified; R00.1 Bradycardia, unspecified; I44.1 Atrioventricular block, second degree; I49.3 Ventricular premature depolarization; R47.81 Slurred speech
CPT/HCPCS: 0241U-QW; 36415; 70450-TC; 70551-TC; 80048; 80053; 80061; 81003; 82962; 83036; 83735; 84100; 84443; 84484; 85025; 85610; 85730; 86850; 86900; 86901; 90677; 93005; 93010; 93306-TC; 93880-TC; 97116-GP; 97162-GP; 99285-25; G0378

== ENCOUNTER 2022-11-18 19:35 | Inpatient (IN) | payer OTHER, MEDICARE ==
[2022-11-18] MEDS ORDERED: HALOPERIDOL LACTATE 5 MG/ML IM ONE ×2 (20:30→20:38)
[2022-11-18] MEDS ORDERED: LORazepam 2 MG/ML SDV VIAL IM ONE (20:30)
[2022-11-18 21:12] LABS: BASO % 0.7 % (0-2.0); EOS % 0.9 % (0-4.5); HEMATOCRIT 36.1 % (32.4-45.2); HEMOGLOBIN 12.2 GM/dL (10.7-15.3); LYMPH % 7.2 % (8-40); MCH 27.5 pg (25.7-33.7); MCHC 33.7 g/dl (32.0-36.0); MEAN CELL VOLUME 81.5 fl (80-96); MEAN PLT VOLUME 7.6 fl (7.5-11.1); MONO % 5.7 % (3.8-10.2); NEUT % 85.5 % (42.8-82.8); PLATELET COUNT 348 10^3/uL (134-434); RBC 4.43 M/mm3 (3.60-5.2); RDW 14.1 % (11.6-15.6); WHITE BLOOD COUNT 14.8 K/mm3 (4.0-10.0)
[2022-11-18 21:47] LABS: POTASSIUM 5.7 mmol/L (3.5-5.1)
[2022-11-18 21:49] LABS: CALCIUM 9.8 mg/dL (8.5-10.1)
[2022-11-18 21:50] LABS: ALBUMIN 3.7 g/dl (3.4-5.0); BLOOD UREA NITROGEN 30.9 mg/dL (7-18)
[2022-11-18 21:53] LABS: CREATININE 2.2 mg/dL (0.55-1.3)
[2022-11-18 21:54] LABS: BILIRUBIN,TOTAL 0.7 mg/dL (0.2-1)
[2022-11-18 21:55] LABS: TOT PROT 7.1 g/dl (6.4-8.2)
[2022-11-19 01:47] LABS: URINE APPEARANCE Clear; URINE BILIRUBIN Negative (NEGATIVE); URINE COLOR Yellow; URINE GLUCOSE (UA) Negative (NEGATIVE); URINE KETONE Negative (NEGATIVE); URINE LEUK ESTERASE 3+ (NEGATIVE); URINE NITRITE Negative (NEGATIVE); URINE PROTEIN 1+ (NEGATIVE); URINE UROBILINOGEN 0.2 mg/dL (0.2-1.0)
[2022-11-19 02:00] LABS: EPI CELLS 4.3 /uL (0-25.1); URINE BACTERIA 23.9 /uL (0-1359); URINE RBC 62.2 /uL (0-23.9); URINE WBC 1489.9 /uL (0-25.8)
[2022-11-19] MEDS ORDERED: CEFTRIAXONE 1 GM in DEXTROSE 5%-WATER - 100 ML IVPB ONE (02:01)
[2022-11-19] MEDS ORDERED: CEFTRIAXONE 1 GM/50 ML BAG ONE ×2 (02:53→10:17)
[2022-11-19] MEDS: SODIUM CHLORIDE 1,000 ML IV SCH (04:09)
[2022-11-19] MEDS ORDERED: HEPARIN NA (PORCINE) 5,000 UNITS/ML 1ML VIAL ONE ×2 (05:23→14:09)
[2022-11-19] MEDS: HEPARIN NA (PORCINE) 5,000 UNITS/ML 1ML VIAL SQ SCH ×3 (05:50→22:14)
[2022-11-19 06:43] LABS: BASO % 0.8 % (0-2.0); EOS % 0.3 % (0-4.5); HEMATOCRIT 37.3 % (32.4-45.2); HEMOGLOBIN 12.5 GM/dL (10.7-15.3); LYMPH % 10.4 % (8-40); MCH 27.7 pg (25.7-33.7); MCHC 33.5 g/dl (32.0-36.0); MEAN CELL VOLUME 82.8 fl (80-96); MEAN PLT VOLUME 7.7 fl (7.5-11.1); MONO % 5.5 % (3.8-10.2); PLATELET COUNT 354 10^3/uL (134-434); RDW 13.7 % (11.6-15.6); WHITE BLOOD COUNT 10.2 K/mm3 (4.0-10.0)
[2022-11-19 06:58] LABS: POTASSIUM 4.8 mmol/L (3.5-5.1)
[2022-11-19 07:00] LABS: BLOOD UREA NITROGEN 25.6 mg/dL (7-18); CALCIUM 9.4 mg/dL (8.5-10.1)
[2022-11-19 07:01] LABS: ALBUMIN 3.6 g/dl (3.4-5.0)
[2022-11-19 07:03] LABS: CREATININE 1.7 mg/dL (0.55-1.3); PHOSPHOROUS 3.1 mg/dL (2.5-4.9)
[2022-11-19 07:05] LABS: BILIRUBIN,TOTAL 0.8 mg/dL (0.2-1); TOT PROT 7.1 g/dl (6.4-8.2)
[2022-11-19 07:06] LABS: CHOLESTEROL 167 mg/dL (50-200); HDL CHOLESTEROL 75 mg/dL (40-60)
[2022-11-19 07:07] LABS: LDL CHOLESTEROL (ONLY SJRH) 80 mg/dL (5-100)
[2022-11-19] MEDS ORDERED: amLODIPine BESYLATE 5 MG TABLET (FP) ONE (10:16)
[2022-11-19] MEDS: CEFTRIAXONE 1 GM in DEXTROSE 5%-WATER - 50 ML IVPB SCH (10:20)
[2022-11-19] MEDS: amLODIPine BESYLATE 5 MG TABLET (FP) PO SCH (10:20)
[2022-11-19 18:08] VITALS: BMI 19.5
[2022-11-19] MEDS: DONEPEZIL HCL 10 MG TABLET (FP) PO SCH (22:15)
[2022-11-19] MEDS: ATORVASTATIN CA 40 MG TABLET (FP) PO SCH (22:15)
[2022-11-20] MEDS: SODIUM CHLORIDE 1,000 ML IV SCH (04:00)
[2022-11-20] MEDS: HEPARIN NA (PORCINE) 5,000 UNITS/ML 1ML VIAL SQ SCH ×3 (06:45→21:18)
[2022-11-20] MEDS: CEFTRIAXONE 1 GM in DEXTROSE 5%-WATER - 50 ML IVPB SCH (09:55)
[2022-11-20] MEDS: amLODIPine BESYLATE 5 MG TABLET (FP) PO SCH (09:56)
[2022-11-20] MEDS ORDERED: SODIUM CHLORIDE 1,000 ML IV SCH (18:15)
[2022-11-20] MEDS: ATORVASTATIN CA 40 MG TABLET (FP) PO SCH (21:18)
[2022-11-20] MEDS: DONEPEZIL HCL 10 MG TABLET (FP) PO SCH (21:18)
[2022-11-21] MEDS: HEPARIN NA (PORCINE) 5,000 UNITS/ML 1ML VIAL SQ SCH ×3 (05:24→21:35)
[2022-11-21 07:17] LABS: HEMATOCRIT 36.6 % (32.4-45.2); HEMOGLOBIN 12.1 GM/dL (10.7-15.3); MCH 27.3 pg (25.7-33.7); MEAN CELL VOLUME 82.6 fl (80-96); MEAN PLT VOLUME 8.1 fl (7.5-11.1); PLATELET COUNT 287 10^3/uL (134-434); RBC 4.43 M/mm3 (3.60-5.2); RDW 13.6 % (11.6-15.6); WHITE BLOOD COUNT 7.2 K/mm3 (4.0-10.0)
[2022-11-21 07:30] LABS: POTASSIUM 3.8 mmol/L (3.5-5.1)
[2022-11-21 07:33] LABS: CALCIUM 8.9 mg/dL (8.5-10.1)
[2022-11-21 07:34] LABS: ALBUMIN 3.1 g/dl (3.4-5.0); MAGNESIUM 1.8 mg/dL (1.8-2.4)
[2022-11-21 07:35] LABS: PHOSPHOROUS 3.4 mg/dL (2.5-4.9)
[2022-11-21 07:37] LABS: CREATININE 1.3 mg/dL (0.55-1.3)
[2022-11-21 07:38] LABS: BILIRUBIN,TOTAL 0.7 mg/dL (0.2-1); TOT PROT 6.5 g/dl (6.4-8.2)
[2022-11-21] MEDS: amLODIPine BESYLATE 5 MG TABLET (FP) PO SCH (09:14)
[2022-11-21] MEDS: CEFTRIAXONE 1 GM in DEXTROSE 5%-WATER - 50 ML IVPB SCH (09:14)
[2022-11-21] MEDS: DONEPEZIL HCL 10 MG TABLET (FP) PO SCH (21:35)
[2022-11-21] MEDS: ATORVASTATIN CA 40 MG TABLET (FP) PO SCH (21:35)
[2022-11-22] MEDS: HEPARIN NA (PORCINE) 5,000 UNITS/ML 1ML VIAL SQ SCH ×3 (06:25→21:46)
[2022-11-22] MEDS: amLODIPine BESYLATE 5 MG TABLET (FP) PO SCH (10:04)
[2022-11-22 10:37] LABS: HEMATOCRIT 37.4 % (32.4-45.2); HEMOGLOBIN 12.3 GM/dL (10.7-15.3); MCHC 32.9 g/dl (32.0-36.0); MEAN CELL VOLUME 82.2 fl (80-96); MEAN PLT VOLUME 8.3 fl (7.5-11.1); PLATELET COUNT 298 10^3/uL (134-434); RBC 4.55 M/mm3 (3.60-5.2); RDW 13.7 % (11.6-15.6); WHITE BLOOD COUNT 7.5 K/mm3 (4.0-10.0)
[2022-11-22] MEDS: CEFTRIAXONE 1 GM in DEXTROSE 5%-WATER - 50 ML IVPB SCH (10:50)
[2022-11-22] MEDS ORDERED: amLODIPine BESYLATE 5 MG TABLET (FP) PO SCH (10:59)
[2022-11-22] MEDS ORDERED: amLODIPine BESYLATE 2.5 MG TABLET (FP) PO ONE (11:00)
[2022-11-22 11:10] LABS: CALCIUM 9.3 mg/dL (8.5-10.1)
[2022-11-22 11:11] LABS: BILIRUBIN,TOTAL 0.6 mg/dL (0.2-1); TOT PROT 6.5 g/dl (6.4-8.2)
[2022-11-22 11:13] LABS: BLOOD UREA NITROGEN 28.6 mg/dL (7-18); CREATININE 1.2 mg/dL (0.55-1.3)
[2022-11-22 11:22] LABS: POTASSIUM 3.8 mmol/L (3.5-5.1)
[2022-11-22] MEDS: ATORVASTATIN CA 40 MG TABLET (FP) PO SCH (21:46)
[2022-11-22] MEDS: DONEPEZIL HCL 10 MG TABLET (FP) PO SCH (21:46)
[2022-11-23] MEDS: HEPARIN NA (PORCINE) 5,000 UNITS/ML 1ML VIAL SQ SCH (05:41)
[2022-11-23] MEDS ORDERED: CEFTRIAXONE 1 GM in DEXTROSE 5%-WATER - 50 ML IVPB SCH ×2 (07:30→10:00)
[2022-11-23 08:36] VITALS: BP 148/75; PULSE 82; RESP 20; TEMP 98.1
[2022-11-23 09:20] LABS: HEMATOCRIT 35.2 % (32.4-45.2); HEMOGLOBIN 11.8 GM/dL (10.7-15.3); MCH 27.5 pg (25.7-33.7); MCHC 33.5 g/dl (32.0-36.0); MEAN CELL VOLUME 82.1 fl (80-96); MEAN PLT VOLUME 7.8 fl (7.5-11.1); PLATELET COUNT 301 10^3/uL (134-434); RBC 4.29 M/mm3 (3.60-5.2); RDW 13.8 % (11.6-15.6); WHITE BLOOD COUNT 5.6 K/mm3 (4.0-10.0)
[2022-11-23 09:31] LABS: POTASSIUM 3.9 mmol/L (3.5-5.1)
[2022-11-23 09:35] LABS: ALBUMIN 2.9 g/dl (3.4-5.0); CALCIUM 9.4 mg/dL (8.5-10.1); MAGNESIUM 2.1 mg/dL (1.8-2.4)
[2022-11-23 09:39] LABS: CREATININE 1.3 mg/dL (0.55-1.3); PHOSPHOROUS 2.9 mg/dL (2.5-4.9); TOT PROT 6.4 g/dl (6.4-8.2)
[2022-11-23 09:41] LABS: BILIRUBIN,TOTAL 0.5 mg/dL (0.2-1)
[2022-11-23] MEDS ORDERED: HEPARIN NA (PORCINE) 5,000 UNITS/ML 1ML VIAL SQ SCH (14:00)
[2022-11-23] MEDS ORDERED: ATORVASTATIN CA 40 MG TABLET (FP) PO SCH (22:00)
[2022-11-23] MEDS ORDERED: DONEPEZIL HCL 10 MG TABLET (FP) PO SCH (22:00)
== END 2022-11-23 13:42 | disposition home or self-care (01) | DRG 690 ==
LOC: JER 19:35 → JERBED 11-19 00:54 → J4W 11-19 16:54 → J6S 11-21 12:12
PROVIDERS: ADMIT Internal Medicine; ATTEND Internal Medicine
DX: N39.0 Urinary tract infection, site not specified (principal); N17.9 Acute kidney failure, unspecified; K40.30 Unilateral inguinal hernia, with obstruction, without gangrene, not specified as recurrent; F02.811 Dementia in other diseases classified elsewhere, unspecified severity, with agitation; I44.0 Atrioventricular block, first degree; I44.7 Left bundle-branch block, unspecified; R55 Syncope and collapse; Z86.16 Personal history of COVID-19; Z95.0 Presence of cardiac pacemaker; G30.9 Alzheimer's disease, unspecified; E87.5 Hyperkalemia; E86.1 Hypovolemia; I35.0 Nonrheumatic aortic (valve) stenosis; I12.9 Hypertensive chronic kidney disease with stage 1 through stage 4 chronic kidney disease, or unspecified chronic kidney disease; N18.9 Chronic kidney disease, unspecified
CPT/HCPCS: 36415; 70450-TC; 71045-TC-FY; 72125-TC; 72170-TC-FY; 74230-TC-FY; 76775-TC; 80053; 80061; 81003; 82550; 82553; 83036; 83735; 84100; 84436; 84443; 84484; 85025; 85027; 87040; 87086; 92611-GN; 93005; 93010; 93306-TC; 93880-TC; 97116-GP; 97161-GP; 99285-25; J1644

== ENCOUNTER 2023-03-17 17:50 | Inpatient (IN) | payer OTHER, MEDICARE ==
[2023-03-17] MEDS ORDERED: HALOPERIDOL LACTATE 5 MG/ML ONE (19:30)
[2023-03-17] MEDS: HALOPERIDOL LACTATE 5 MG/ML IM ONE (19:38)
[2023-03-17 19:51] LABS: EPI CELLS >36 /uL (0-25.1); HYALINE CASTS 8 /uL (0-3.1); URINE APPEARANCE CLOUDY; URINE BACTERIA 28 /uL (0-1359); URINE BILIRUBIN NEGATIVE (NEGATIVE); URINE COLOR YELLOW; URINE GLUCOSE (UA) NEGATIVE (NEGATIVE); URINE KETONE NEGATIVE (NEGATIVE); URINE LEUK ESTERASE NEGATIVE (NEGATIVE); URINE NITRITE NEGATIVE (NEGATIVE); URINE PROTEIN 1+ (NEGATIVE); URINE WBC 49 /uL (0-25.8)
[2023-03-17 20:12] LABS: URINE RBC 27.8 /uL (0-23.9)
[2023-03-17 20:13] LABS: URINE CRYSTALS FEW /hpf
[2023-03-17 20:18] LABS: BASO % 0.5 % (0-2.0); EOS % 0.3 % (0-4.5); HEMATOCRIT 36.8 % (32.4-45.2); HEMOGLOBIN 12.3 GM/dL (10.7-15.3); MCH 27.5 pg (25.7-33.7); MCHC 33.5 g/dl (32.0-36.0); MEAN CELL VOLUME 81.9 fl (80-96); MEAN PLT VOLUME 7.5 fl (7.5-11.1); MONO % 4.6 % (3.8-10.2); NEUT % 88.6 % (42.8-82.8); PLATELET COUNT 356 10^3/uL (134-434); RDW 14.3 % (11.6-15.6)
[2023-03-17 20:29] LABS: INR 1.05 (0.83-1.09); PROTHROMBIN TIME (PATIENT) 12.2 SEC (9.7-13.0)
[2023-03-17 20:32] LABS: ACTIVATED PTT 29.2 SECONDS (25.2-36.5)
[2023-03-17 20:34] LABS: BLOOD UREA NITROGEN 29.8 mg/dL (7-18); CALCIUM 9.7 mg/dL (8.5-10.1)
[2023-03-17 20:35] LABS: ALBUMIN 3.5 g/dl (3.4-5.0); MAGNESIUM 1.9 mg/dL (1.8-2.4)
[2023-03-17 20:37] LABS: CREATININE 1.5 mg/dL (0.55-1.3)
[2023-03-17 20:39] LABS: BILIRUBIN,TOTAL 0.9 mg/dL (0.2-1); TOT PROT 6.8 g/dl (6.4-8.2)
[2023-03-17] MEDS: SODIUM CHLORIDE 1,000 ML IV SCH (21:52)
[2023-03-17] MEDS: LACTATED RINGERS SOLUTION 1000 ML INFUS.BAG IV ONE (21:52)
[2023-03-18 08:01] LABS: POTASSIUM 3.6 mmol/L (3.5-5.1)
[2023-03-18] MEDS ORDERED: amLODIPine BESYLATE 5 MG TABLET (FP) ONE (08:08)
[2023-03-18 08:18] LABS: CALCIUM 9.4 mg/dL (8.5-10.1)
[2023-03-18 08:19] LABS: BLOOD UREA NITROGEN 27.6 mg/dL (7-18)
[2023-03-18 08:22] LABS: CREATININE 1.1 mg/dL (0.55-1.3); PHOSPHOROUS 3.1 mg/dL (2.5-4.9)
[2023-03-18] MEDS: amLODIPine BESYLATE 5 MG TABLET (FP) PO SCH (10:31)
[2023-03-18] MEDS: ATORVASTATIN CA 40 MG TABLET (FP) PO SCH (22:25)
[2023-03-18] MEDS: DONEPEZIL HCL 10 MG TABLET (FP) PO SCH (22:25)
[2023-03-18] MEDS: FLU VACCINE (FLULAVAL) PF 60 MCG/0.5 ML SYRINGE 2023-2024 IM ONE (22:36)
[2023-03-18] MEDS: LORazepam 2 MG/ML SDV VIAL IM ONE (22:36)
[2023-03-19 07:29] LABS: BASO % 0.6 % (0-2.0); EOS % 0.4 % (0-4.5); HEMATOCRIT 41.1 % (32.4-45.2); HEMOGLOBIN 13.2 GM/dL (10.7-15.3); LYMPH % 9.9 % (8-40); MCH 26.1 pg (25.7-33.7); MCHC 32.2 g/dl (32.0-36.0); MEAN PLT VOLUME 8.2 fl (7.5-11.1); MONO % 4.8 % (3.8-10.2); NEUT % 84.3 % (42.8-82.8); PLATELET COUNT 361 10^3/uL (134-434); RBC 5.08 M/mm3 (3.60-5.2); RDW 14.6 % (11.6-15.6); WHITE BLOOD COUNT 9.6 K/mm3 (4.0-10.0)
[2023-03-19 07:32] LABS: POTASSIUM 4.2 mmol/L (3.5-5.1)
[2023-03-19 07:46] LABS: BLOOD UREA NITROGEN 23.3 mg/dL (7-18); CALCIUM 10.6 mg/dL (8.5-10.1)
[2023-03-19 07:47] LABS: ALBUMIN 3.8 g/dl (3.4-5.0)
[2023-03-19 07:50] LABS: CREATININE 1.1 mg/dL (0.55-1.3)
[2023-03-19 07:51] LABS: BILIRUBIN,TOTAL 1.2 mg/dL (0.2-1); TOT PROT 7.9 g/dl (6.4-8.2)
[2023-03-19] MEDS: metoPROLOL SUCCINATE 25 MG TAB.SR.24H (FP) PO SCH (15:16)
[2023-03-20 15:13] VITALS: RESP 18
[2023-03-21 09:23] VITALS: BP 121/68; PULSE 92; TEMP 98.6
[2023-03-21] MEDS: SACUBITRIL/VALSARTAN 24 MG-26 MG TABLET PO SCH (12:52)
== END 2023-03-21 13:02 | disposition home or self-care (01) | DRG 312 ==
LOC: JER 17:50 → JERBED 21:06 → J4W 03-18 18:41 → OBSVTOIN 03-19 10:31
PROVIDERS: ADMIT Internal Medicine; ATTEND Internal Medicine
DX: R55 Syncope and collapse (principal); R64 Cachexia; I10 Essential (primary) hypertension; E86.0 Dehydration; E78.5 Hyperlipidemia, unspecified; I44.0 Atrioventricular block, first degree; I44.7 Left bundle-branch block, unspecified; G30.9 Alzheimer's disease, unspecified; F02.80 Dementia in other diseases classified elsewhere, unspecified severity, without behavioral disturbance, psychotic disturbance, mood disturbance, and anxiety; N28.9 Disorder of kidney and ureter, unspecified; Z68.20 Body mass index [BMI] 20.0-20.9, adult; Z95.0 Presence of cardiac pacemaker
CPT/HCPCS: 0241U-QW; 36415; 70450-TC; 71045-TC-FY; 80048; 80053; 81003; 82550; 83735; 84100; 84484; 85025; 85610; 85730; 87086; 90686; 93005; 93010; 93306-TC; 93880-TC; 97116-GP; 97161-GP; 99285-25; G0008; G0378

== ENCOUNTER 2023-12-11 12:31 | Emergency (ER) | payer OTHER, MEDICARE ==
[2023-12-11 12:39] VITALS: BP 137/97; PULSE 80; RESP 16; TEMP 98; BMI 17.5
[2023-12-11] MEDS ORDERED: HALOPERIDOL 2 MG TABLET PO ONE (13:28)
[2023-12-11] MEDS ORDERED: LORazepam 1 MG TABLET ONE (13:30)
[2023-12-11] MEDS: HALOPERIDOL 1 MG TABLET PO ONE (14:08)
[2023-12-11] MEDS: LORazepam 2 MG TABLET PO ONE (14:08)
[2023-12-11 15:35] LABS: BASO % 0.7 % (0-2.0); EOS % 2.4 % (0-4.5); HEMATOCRIT 36.5 % (32.4-45.2); HEMOGLOBIN 12.1 GM/dL (10.7-15.3); LYMPH % 14.5 % (8-40); MCH 27.5 pg (25.7-33.7); MCHC 33.1 g/dl (32.0-36.0); MEAN CELL VOLUME 82.9 fl (80-96); MEAN PLT VOLUME 7.6 fl (7.5-11.1); MONO % 5.8 % (3.8-10.2); NEUT % 76.6 % (42.8-82.8); PLATELET COUNT 337 10^3/uL (134-434); WHITE BLOOD COUNT 7.1 K/mm3 (4.0-10.0)
[2023-12-11 15:39] LABS: EPI CELLS 17 /uL (0-25.1); HYALINE CASTS 0 /uL (0-3.1); PH,URINE 5.5 (5.0-8.0); URINE APPEARANCE TURBID; URINE BACTERIA >9,000 /uL (0-1359); URINE BILIRUBIN NEGATIVE (NEGATIVE); URINE COLOR YELLOW; URINE GLUCOSE (UA) NEGATIVE (NEGATIVE); URINE KETONE NEGATIVE (NEGATIVE); URINE LEUK ESTERASE 3+ (NEGATIVE); URINE NITRITE POSITIVE (NEGATIVE); URINE PROTEIN 1+ (NEGATIVE); URINE UROBILINOGEN 0.2 mg/dL (0.2-1.0); URINE WBC 16396 /uL (0-25.8)
[2023-12-11 15:54] LABS: POTASSIUM 5.1 mmol/L (3.5-5.1)
[2023-12-11 15:57] LABS: ALBUMIN 3.3 g/dl (3.4-5.0); BLOOD UREA NITROGEN 20.5 mg/dL (7-18); CALCIUM 10.1 mg/dL (8.5-10.1)
[2023-12-11 16:00] LABS: CREATININE 1.2 mg/dL (0.55-1.3)
[2023-12-11 16:02] LABS: BILIRUBIN,TOTAL 0.7 mg/dL (0.2-1); TOT PROT 6.5 g/dl (6.4-8.2)
[2023-12-11 16:17] LABS: LACTIC ACID 2.2 mmol/L (0.4-2.0)
[2023-12-11] MEDS ORDERED: CEFTRIAXONE 1 GM/50 ML BAG ONE (17:12)
[2023-12-11] MEDS ORDERED: ACETAMINOPHEN INJECTION 100 ML ONE (17:12)
[2023-12-11] MEDS: ACETAMINOPHEN 1000 MG/100 ML BAG IVPB ONE (17:24)
[2023-12-11] MEDS: SODIUM CHLORIDE 0.9% 500 ML INFUS.BAG IV ONE (17:24)
[2023-12-11 17:26] LABS: URINE RBC 384.3 /uL (0-23.9); YEAST NONE SEEN (NEGATIVE)
== END 2023-12-11 18:27 | disposition home or self-care (01) ==
LOC: JER 12:31
PROC: 3E033NZ Introduction of Analgesics, Hypnotics, Sedatives into Peripheral Vein, Percutaneous Approach (ICD-10-PCS; principal; 2023-12-11)
PROC: 3E03329 Introduction of Other Anti-infective into Peripheral Vein, Percutaneous Approach (ICD-10-PCS; 2023-12-11)
DX: N39.0 Urinary tract infection, site not specified (principal); R19.7 Diarrhea, unspecified; R10.9 Unspecified abdominal pain
CPT/HCPCS: 36415; 80053; 81003; 83605; 83690; 84443; 85025; 87086; 87186; 99284-25; J0131